=== PATIENT | male | born 2000 | race Caucasian/White ===

== ENCOUNTER 2021-12-14 03:36 | Emergency (ER) | payer MEDICAID ==
--- NOTE | 2021-12-14 03:46 | ED Physician Documentation ---
PD HPI MHE - Stated complaint Stated Complaint: OD/ETOH
[2021-12-14] MEDS ORDERED: SODIUM CHLORIDE 0.9% 1,000 ML IV STA (04:26)
[2021-12-14 04:33] LABS: BASOPHILS # (AUTO) 0.1 10^3/uL (0.0-0.1); BASOPHILS % (AUTO) 0.9 %; EOSINOPHILS % (AUTO) 0.5 %; HCT - HEMATOCRIT 49.3 % (42.0-52.0); HGB - HEMOGLOBIN 16.8 g/dL (14.0-18.0); LYMPHOCYTES # (AUTO) 2.4 10^3/uL (1.5-3.5); LYMPHOCYTES % (AUTO) 30.2 %; MEAN CORPUSCULAR HEMOGLOBIN 31.8 pg (27.0-31.0); MEAN CORPUSCULAR HGB CONC 34.1 g/dL (32.0-36.0); MEAN CORPUSCULAR VOLUME 93.2 fL (80.0-94.0); MEAN PLATELET VOLUME 11.4 fL (7.4-11.4); MONOCYTES # (AUTO) 0.5 10^3/uL (0.0-1.0); MONOCYTES % (AUTO) 6.4 %; NEUTROPHILS % (AUTO) 61.5 %; PLT - PLATELET COUNT 276 10^3/uL (130-450); RED BLOOD COUNT 5.29 10^6/uL (4.70-6.10); RED CELL DISTRIBUTION WIDTH 12.1 % (12.0-15.0); WHITE BLOOD COUNT 8.1 x10^3/uL (4.8-10.8)
[2021-12-14 04:45] LABS: ACETAMINOPHEN < 10 ug/mL (10-30); ALBUMIN 5.2 g/dL (3.2-5.5); ALBUMIN/GLOBULIN RATIO 1.5 (1.0-2.2); ALKALINE PHOSPHATASE 67 IU/L (42-121); ALT ALANINE AMINOTRANSFERASE 21 IU/L (10-60); AST ASPARTATE AMINOTRANSFERASE 22 IU/L (10-42); BILIRUBIN,TOTAL 0.3 mg/dL (0.2-1.0); BUN - BLOOD UREA NITROGEN 15 mg/dL (6-20); CALCIUM 9.9 mg/dL (8.5-10.3); CARBON DIOXIDE - CO2 28 mmol/L (21-32); CHLORIDE 103 mmol/L (101-111); CREATININE 0.9 mg/dL (0.6-1.2); ETOH - ETHANOL 171.6 mg/dL; GFR - MDRD 107 (>89); GLUCOSE 88 mg/dL (70-100); LIPASE 42 U/L (22-51); POTASSIUM 3.5 mmol/L (3.5-5.0); SALICYLATE < 6.0 mg/dL; SODIUM 145 mmol/L (135-145); TOTAL PROTEIN 8.6 g/dL (6.7-8.2)
--- NOTE | 2021-12-14 06:27 | ED Physician Documentation ---
PD HPI OVERDOSE - Stated complaint Stated Complaint: OD/ETOH - Chief complaint Chief Complaint: MHE - History obtained from History obtained from: Patient, Family (brother (in ED at bedside)) - History of Present Illness Timing - onset: Enter time (23:30) Subtance(s) ingested: Multiple, EtOH Pain level now: 0 Recently seen: Not recently seen - Additional information Additional information: brought to ED by private vehicle (brother drove patient to ED). Patient says he took overdose of multiple medications (ibuprofen, xanax, methocarbimol, phenergan, benzonatate) and drank alcohol. He says he took these medications at approximately 11:30 PM. He tells me he does not know why he took all of these medications . He denies SI, denies h/o overdose. He denies ever having been evaluated in an ED for overdose or mental health issues. Review of Systems Cardiac: reports: Reviewed and negative Respiratory: reports: Reviewed and negative GI: reports: Reviewed and negative : denies: Unable to Void, Incontinent Musculoskeletal: reports: Reviewed and negative Neurologic: reports: Reviewed and negative PD PAST MEDICAL HISTORY - Past Medical History Past Medical History: Yes Cardiovascular: None Respiratory: None Neuro: None Endocrine/Autoimmune: None GI: None : None HEENT: None Psych: None Musculoskeletal: Chronic back pain Derm: None - Past Surgical History Past Surgical History: Yes Ortho: Other - Present Medications Home Medications: Ambulatory Orders Medication Instructions Recorded Confirmed No Known Home Medications 12/14/21 12/14/21 - Allergies Allergies/Adverse Reactions: Allergies Allergy/AdvReac Type Severity Reaction Status Date / Time Penicillins AdvReac Unknown Verified 12/14/21 04:10 - Social History Does the pt smoke?: Yes Smoking Status: Current every day smoker Does the pt drink ETOH?: Yes Does the pt have substance abuse?: Yes Substance Use and Type: Cocaine/Crack - Immunizations Immunizations: TDAP >10years/unknown - POLST Patient has POLST: No PD ED PE NORMAL - Vitals Vital signs reviewed: Yes - General General: Well developed/nourished, Other (drowsy, awakens to voice, slow to answer but intelligible albeit brief answers) - HEENT HEENT: Atraumatic, PERRL, EOMI, Other (horizontal nystagmus) - Neck Neck: Supple, no meningeal sign - Cardiac Cardiac: RRR, No murmur - Respiratory Respiratory: No respiratory distress, Clear bilaterally - Abdomen Abdomen: Normal bowel sounds, Soft, Non tender - Derm Derm: Normal color, Warm and dry Results - Vitals Vitals: Oxygen O2 Source Room air - Labs Labs: Laboratory Tests 12/14/21 12/14/21 12/14/21 04:00 04:00 04:00 WBC 8.1 RBC 5.29 Hgb 16.8 Hct 49.3 MCV 93.2 MCH 31.8 H MCHC 34.1 RDW 12.1 Plt Count 276 MPV 11.4 Neut # (Auto) 5.0 Lymph # (Auto) 2.4 [place] # (Auto) 0.5 Eos # (Auto) 0.0 Baso # (Auto) 0.1 Absolute Nucleated RBC 0.00 Nucleated RBC % 0.0 Sodium 145 Potassium 3.5 Chloride 103 Carbon Dioxide 28 Anion Gap 14.0 H BUN 15 Creatinine 0.9 Estimated GFR (MDRD) 107 Glucose 88 Calcium 9.9 Total Bilirubin 0.3 AST 22 ALT 21 Alkaline Phosphatase 67 Total Protein 8.6 H Albumin 5.2 Globulin 3.4 Albumin/Globulin Ratio 1.5 Lipase 42 TSH Urine Color Urine Clarity Urine pH Ur Specific [place] Urine Protein Urine Glucose (UA) Urine Ketones Urine Occult Blood Urine Nitrite Urine Bilirubin Urine Urobilinogen Ur Leukocyte Esterase Ur Microscopic Review Urine Culture Comments Salicylates < 6.0 Urine Opiates Screen Ur Oxycodone Screen Urine Methadone Screen Ur Propoxyphene Screen Acetaminophen < 10 L Ur Barbiturates Screen Ur Tricyclics Screen Ur Phencyclidine Scrn Ur Amphetamine Screen U Methamphetamines Scrn U Benzodiazepines Scrn Urine Cocaine Screen U Cannabinoids Screen Ethyl Alcohol 172.4 171.6 SARS-CoV-2 (PCR) 12/14/21 12/14/21 12/14/21 04:00 05:25 08:42 WBC RBC Hgb Hct MCV MCH MCHC RDW Plt Count MPV Neut # (Auto) Lymph # (Auto) [place] # (Auto) Eos # (Auto) Baso # (Auto) Absolute Nucleated RBC Nucleated RBC % Sodium Potassium Chloride Carbon Dioxide Anion Gap BUN Creatinine Estimated GFR (MDRD) Glucose Calcium Total Bilirubin AST ALT Alkaline Phosphatase Total Protein Albumin Globulin Albumin/Globulin Ratio Lipase TSH 1.66 Urine Color Urine Clarity Urine pH Ur Specific [place] Urine Protein Urine Glucose (UA) Urine Ketones Urine Occult Blood Urine Nitrite Urine Bilirubin Urine Urobilinogen Ur Leukocyte Esterase Ur Microscopic Review Urine Culture Comments Salicylates Urine Opiates Screen Ur Oxycodone Screen Urine Methadone Screen Ur Propoxyphene Screen Acetaminophen Ur Barbiturates Screen Ur Tricyclics Screen Ur Phencyclidine Scrn Ur Amphetamine Screen U Methamphetamines Scrn U Benzodiazepines Scrn Urine Cocaine Screen U Cannabinoids Screen Ethyl Alcohol 60.8 SARS-CoV-2 (PCR) NOT DETECTED 12/14/21 09:59 WBC RBC Hgb Hct MCV MCH MCHC RDW Plt Count MPV Neut # (Auto) Lymph # (Auto) [place] # (Auto) Eos # (Auto) Baso # (Auto) Absolute Nucleated RBC Nucleated RBC % Sodium Potassium Chloride Carbon Dioxide Anion Gap BUN Creatinine Estimated GFR (MDRD) Glucose Calcium Total Bilirubin AST ALT Alkaline Phosphatase Total Protein Albumin Globulin Albumin/Globulin Ratio Lipase TSH Urine Color YELLOW Urine Clarity CLEAR Urine pH 6.0 Ur Specific [place] >=1.030 H Urine Protein NEGATIVE Urine Glucose (UA) NEGATIVE Urine Ketones 15 H Urine Occult Blood NEGATIVE Urine Nitrite NEGATIVE Urine Bilirubin NEGATIVE Urine Urobilinogen 0.2 (NORMAL) Ur Leukocyte Esterase NEGATIVE Ur Microscopic Review NOT INDICATED Urine Culture Comments NOT INDICATED Salicylates Urine Opiates Screen NEGATIVE Ur Oxycodone Screen NEGATIVE Urine Methadone Screen NEGATIVE Ur Propoxyphene Screen NEGATIVE Acetaminophen Ur Barbiturates Screen NEGATIVE Ur Tricyclics Screen NEGATIVE Ur Phencyclidine Scrn NEGATIVE Ur Amphetamine Screen NEGATIVE U Methamphetamines Scrn NEGATIVE U Benzodiazepines Scrn NEGATIVE Urine Cocaine Screen NEGATIVE U Cannabinoids Screen POSITIVE H Ethyl Alcohol SARS-CoV-2 (PCR) PD MEDICAL DECISION MAKING - ED course Complexity details: reviewed results, re-evaluated patient, considered differential, d/w patient, d/w family (brother of patient ) ED course: patient says he overdosed on multiple medications as noted in HPI, and drank alcohol. He repeatedly denies SI when I ask him about this, yet also insists he does not have any reason why he took all of these medications. He is drowsy on my exam, mostly indifferent and unconcerned. Care of patient turned over to Dr. Baeza at end of my shift; he is pending improved mental status so that he can be reevaluated and assessed for suicide risk. SW consult is also ordered Departure - Departure Disposition: 01 Home, Self Care Clinical Impression: Alcohol intoxication, Intentional overdose Condition: Stable Instructions: ED Alcohol Intoxication, ED Overdose Intentional Comments: You Were evaluated after taking too much medication in the setting of alcohol use. Your labs did not show any significant abnormalities other than your alcohol level being elevated.You have metabolized the medications as well as the alcohol from your system. You were evaluated by her social welfare clerk as well as by A designated crisis responder. At this time we feel you are safe to go home with the understanding that you will avoid alcohol and follow-up with your counseling program. If you start having thoughts of hurting yourself or feeling unsafe, please call 911. Discharge Date/Time: 12/14/21 17:45
[2021-12-14 10:14] LABS: MUDS CUTOFF CONCENTRATIONS CUTOFF CONC BELOW:
[2021-12-14 10:18] LABS: BILIRUBIN,URINE NEGATIVE (NEGATIVE); GLUCOSE, URINE (UA) NEGATIVE (NEGATIVE); KETONES,URINE (UA) 15 mg/dL (NEGATIVE); LEUKOCYTE ESTERASE, URINE NEGATIVE (NEGATIVE); NITRITE,URINE NEGATIVE (NEGATIVE); OCCULT BLOOD,URINE NEGATIVE (NEGATIVE); PROTEIN,URINE NEGATIVE (NEGATIVE); UROBILINOGEN,URINE 0.2 (NORMAL) E.U./dL (NORMAL)
[2021-12-14 10:28] LABS: CLARITY,URINE CLEAR (CLEAR)
[2021-12-14 10:29] LABS: AMPHETAMINE SCREEN,URINE NEGATIVE (NEGATIVE); BARBITURATE SCREEN,UR NEGATIVE (NEGATIVE); BENZODIAZEPINES SCREEN, URINE NEGATIVE (NEGATIVE); COCAINE SCREEN URINE NEGATIVE (NEGATIVE); METHADONE SCREEN, URINE NEGATIVE (NEGATIVE); METHAMPHETAMINES SCREEN, URINE NEGATIVE (NEGATIVE); OPIATE SCREEN, URINE NEGATIVE (NEGATIVE); OXYCODONE SCREEN, URINE NEGATIVE (NEGATIVE); PROPOXYPHENE SCREEN, URINE NEGATIVE (NEGATIVE); THC CANNABINOID SCREEN, URINE POSITIVE (NEGATIVE); TRICYCLIC ANTIDEPRESSANT,URINE NEGATIVE (NEGATIVE)
--- NOTE | 2021-12-14 12:24 | ED Physician Documentation ---
ED Addendum - Addendum Addendum: Patient signed out to me by overnight physician. Patient presented with ingestion as well as alcohol intoxication. It is unclear whether the patient's intent was to harm himself. He remains sleepy this morning. Will reassess. Social work has been consulted. 12/14/21 12:23 Patient has been seen by medical social work.She is going to ask the DCR to evaluate the patient as he states he will try and hurt himself again. 12/14/21 17:24 Patient has been evaluated by the DCR. At this time he is not any criteria for involuntary detainment as he only feels suicidal when he is intoxicated and he does not appear to be gravely disabled by his alcohol use. He is planning on staying with his aunt who lives in [facility] [place] [facility]. She reports that she does not have any alcohol there.He is set up with a counseling program and was supposed to have his first appointment today. Departure - Departure Disposition: 01 Home, Self Care Clinical Impression: Alcohol intoxication Qualifiers: Complication of substance-induced condition: uncomplicated Qualified Code(s): F10.920 - Alcohol use, unspecified with intoxication, uncomplicated Intentional overdose Qualifiers: Encounter type: initial encounter Qualified Code(s): T50.902A - Poisoning by unspecified drugs, medicaments and biological substances, intentional self-harm, initial encounter Condition: Stable Instructions: ED Alcohol Intoxication, ED Overdose Intentional Comments: You Were evaluated after taking too much medication in the setting of alcohol use. Your labs did not show any significant abnormalities other than your alcohol level being elevated.You have metabolized the medications as well as the alcohol from your system. You were evaluated by her social media editor as well as by A designated crisis responder. At this time we feel you are safe to go home with the understanding that you will avoid alcohol and follow-up with your counseling program. If you start having thoughts of hurting yourself or feeling unsafe, please call 911.
[2021-12-14 17:57] VITALS: BP 107/75
== END 2021-12-14 17:45 | disposition home or self-care (01) ==
LOC: ED 03:36
DX: T50.992A Poisoning by other drugs, medicaments and biological substances, intentional self-harm, initial encounter (principal); F10.129 Alcohol abuse with intoxication, unspecified; F17.200 Nicotine dependence, unspecified, uncomplicated; Z20.822 Contact with and (suspected) exposure to COVID-19
CPT/HCPCS: 36415; 80053; 80306; 80307; 80320; 80329; 81001; 81003; 83690; 84443; 85025; 87086; 93005; 96360; 99283